=== PATIENT | female | born 1960 | race Caucasian/White ===

== ENCOUNTER 2017-02-27 11:52 | Day surgery (SDC) | payer BC ==
[~2017-02-27] VITALS: Ht 149.9 cm; Wt 87.1 kg
[~2017-02-27 11:52] MED LIST: DICLOFENAC SODI75 MG PO; GABAPENTIN100 MG PO; LANSOPRAZOLE30 MG PO; LISINOP/HCTZ1 TAB PO; METOPROL TAR25 MG PO; NAPROSYN500 MG PO; PAROXETINE20 MG PO; PRAVASTATIN20 MG PO; TRAMADOL HCL50 MG PO
[2017-02-27 14:44] VITALS: BP 155/77
== END 2017-02-27 15:30 | disposition home or self-care (01) | DRG 392 ==
LOC: ENDO 11:52
PROVIDERS: ATTEND Internal Medicine Gastroenterology
PROC: 0DJD8ZZ Inspection of Lower Intestinal Tract, Via Natural or Artificial Opening Endoscopic (ICD-10-PCS; principal; 2017-02-27)
DX: R10.12 Left upper quadrant pain (principal); I10 Essential (primary) hypertension; K62.5 Hemorrhage of anus and rectum; K59.00 Constipation, unspecified; K21.9 Gastro-esophageal reflux disease without esophagitis; F41.9 Anxiety disorder, unspecified; K64.4 Residual hemorrhoidal skin tags; K64.8 Other hemorrhoids

== ENCOUNTER 2017-08-20 08:30 | Emergency (ER) | payer BC ==
[~2017-08-20] VITALS: Ht 149.9 cm; Wt 90.0 kg
[2017-08-20 09:21] LABS: HEMATOCRIT 41.1 % (37.0-47.0); HEMOGLOBIN 13.7 g/dl (12.0-16.0); IMMATURE GRANULOCYTES 0.3 % (0.0-1.0); MEAN CELL VOLUME 85.8 fL CALC (80.0-100.0); MEAN CORPUSCULAR HGB 28.6 pG CALC (26.0-32.0); MEAN CORPUSCULAR HGB CONC 33.3 g/L CALC (32.0-36.0); NEUT# 3.94 thou/uL (2.00-7.15); RED BLOOD COUNT 4.79 mill/uL (4.20-5.60); RED CELL DISTRI WIDTH 13.1 % (11.5-15.5)
[2017-08-20 09:34] LABS: ANION GAP 18 (6-22 (CALC)); BUN 15 mg/dL (7-17); BUN/CREATININE RATIO 17 (12-20 (CALC)); CARBON DIOXIDE 24 mmol/l (22-30); CHLORIDE 105 mmol/l (95-108); CREATININE 0.9 mg/dL (0.5-1.0); GFR > 60 ML/MIN (>=60 (CALC)); GFR FOR AFR.AMER. > 60 ML/MIN (>=60 (CALC)); POTASSIUM 4.5 mmol/l (3.5-5.1); SODIUM 143 mmol/l (137-146)
[2017-08-20] MEDS ORDERED: MECLIZINE25 M1 PO (09:50)
[2017-08-20 10:38] VITALS: BP 131/70
== END 2017-08-20 10:38 | disposition home or self-care (01) | DRG 149 ==
LOC: ED 08:30
PROVIDERS: Family Medicine
DX: R42 Dizziness and giddiness (principal); R11.0 Nausea; R51 Headache

== ENCOUNTER 2018-07-15 19:39 | Emergency (ER) | payer BC ==
[~2018-07-15] VITALS: Ht 149.9 cm; Wt 83.0 kg
[~2018-07-15 19:39] MED LIST changes: +MECLIZINE25 M1 PO
[2018-07-15] MEDS ORDERED: AMOXICILLIN500 M2 PO (20:54)
[2018-07-15] MEDS ORDERED: PAROXETINE HCL40 MG PO (20:55)
[2018-07-15] MEDS ORDERED: LOPRESSOR25 M1 PO (20:56)
[2018-07-15 21:52] LABS: HEMATOCRIT 35.8 % (37.0-47.0); HEMOGLOBIN 11.9 g/dl (12.0-16.0); IMMATURE GRANULOCYTES 1.5 % (0.0-5.0); MEAN CELL VOLUME 82.9 fL CALC (80.0-100.0); MEAN CORPUSCULAR HGB 27.5 pG CALC (26.0-32.0); MEAN CORPUSCULAR HGB CONC 33.2 g/L CALC (32.0-36.0); NEUT# 9.41 thou/uL (2.00-7.15); RED BLOOD COUNT 4.32 mill/uL (4.20-5.60)
[2018-07-15 22:04] LABS: ALBUMIN 4.2 g/dL (3.2-5.0); ALKALINE PHOSPHATASE 95 u/l (38-126); ANION GAP 16 (6-22 (CALC)); BILIRUBIN, TOTAL 0.9 mg/dL (0.0-1.4); BUN 10 mg/dL (7-17); BUN/CREATININE RATIO 10 (12-20 (CALC)); CARBON DIOXIDE 23 mmol/l (22-30); CHLORIDE 103 mmol/l (95-108); GFR 57 ML/MIN (>=60 (CALC)); GFR FOR AFR.AMER. > 60 ML/MIN (>=60 (CALC)); POTASSIUM 4.2 mmol/l (3.5-5.1); SGOT/AST 19 u/l (14-36); SODIUM 139 mmol/l (137-146); TOTAL PROTEIN 7.5 g/dL (6.3-8.2)
[2018-07-16] MEDS ORDERED: ZOFRAN ODT4 MG PO (00:02)
[2018-07-16] MEDS ORDERED: AUGMENTIN875TAB PO (00:02)
[2018-07-16] MEDS ORDERED: PERCOCET 5/325M1 TAB PO (00:02)
[2018-07-16 00:20] VITALS: BP 134/77
== END 2018-07-16 00:22 | disposition home or self-care (01) | DRG 159 ==
LOC: ED 19:39
PROVIDERS: Emergency Medicine
DX: K04.7 Periapical abscess without sinus (principal); I10 Essential (primary) hypertension
CPT/HCPCS: Q9967

== ENCOUNTER 2019-05-24 08:23 | Day surgery (SDC) | payer BC ==
[~2019-05-24] VITALS: Ht 149.9 cm; Wt 86.2 kg
[~2019-05-24 08:23] MED LIST changes: +ALENDRONATE SOD70 MG PO; +AMOXICILLIN500 M2 PO; +AUGMENTIN875TAB PO; +BUSPIRONE5 MG PO; +FOSAMAX PLUS PO; +LOPRESSOR25 M1 PO; +PAROXETINE HCL40 MG PO; +PERCOCET 5/325M1 TAB PO; +ZOFRAN ODT4 MG PO
[2019-05-24 11:05] VITALS: BP 107/53
== END 2019-05-24 11:16 | disposition home or self-care (01) | DRG 392 ==
LOC: ENDO 08:23 → ORM 10:45 → ENDO 10:45
PROVIDERS: ATTEND Surgery
PROC: 0DB48ZX Excision of Esophagogastric Junction, Via Natural or Artificial Opening Endoscopic, Diagnostic (ICD-10-PCS; principal; 2019-05-24)
PROC: 0DB78ZX Excision of Stomach, Pylorus, Via Natural or Artificial Opening Endoscopic, Diagnostic (ICD-10-PCS; 2019-05-24)
DX: K21.0 Gastro-esophageal reflux disease with esophagitis (principal); K31.9 Disease of stomach and duodenum, unspecified; K29.50 Unspecified chronic gastritis without bleeding; I10 Essential (primary) hypertension; Z79.899 Other long term (current) drug therapy